=== PATIENT | male | born 2000 | race Caucasian/White ===

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

== ENCOUNTER 2021-01-16 13:46 | Emergency (ER) | payer MEDICAID ==
[~2021-01-16] VITALS: Ht 185.4 cm; Wt 81.8 kg
[~2021-01-16 13:46] MED LIST: FLUO10TA2 PO; TRAZ-252 PO; VENL37.598 PO
[2021-01-16 13:55] VITALS: BP 120/67
== END 2021-01-16 16:33 | disposition left against medical advice (07) ==
LOC: M ED 13:46
DX: Z53.21 Procedure and treatment not carried out due to patient leaving prior to being seen by health care provider (principal)

== ENCOUNTER → 2021-02-28 | Outpatient (CLI) | payer MEDICAID | LOC: M LABSMTC 09:18 | PROVIDERS: ATTEND Pediatrics | DX: Z20.822 Contact with and (suspected) exposure to COVID-19 (principal) ==